=== PATIENT | female | born 1985 | race African-American/Black ===

== ENCOUNTER 2021-04-29 12:34 | Outpatient (CLI) | payer OTHER, SELFPAY ==
--- NOTE | ~2021-04-29 | MMUS_ITS ---
EXAMINATION: MM diagnostic kenneth LT w lupe, US breast LT limited HISTORY: Palpable left breast lump TECHNIQUE: Additional 3-D tomosynthesis images of the left breast were performed and synthetic 2-D im ages were generated. CAD analysis was submitted and interpreted. High resolution Limited left breast ultrasound was performed. COMPARISON: No prior studies for comparison. BREAST PARENCHYMAL COMPOSITION: Breast composed of scattered areas of fibroglandular density FINDINGS: MAMMOGRAPHIC FINDINGS: There are no suspicious masses, calcifications or architectural distortion in the left breast to sugg est malignancy. ULTRASOUND: Limited left breast ultrasound: Normal heterogeneous echotexture without focal mass. IMPRESSION: 1. No evidence for malignancy in the left breast. 2. Routine yearly screening mammogram and regular clinical breast examination are recommended. BI-RADS Category 1: Negative Reviewed, dictated and finalized at location A. [facility] WELDER IMPRESSION: 1. No evidence for malignancy in the left breast. 2. Routine yearly screening mammogram and regular clinical breast examination a re recommended. BI-RADS Category 1: Negative
== END 2021-04-29 12:35 | disposition home or self-care (01) ==
LOC: ANHIMG 12:37
PROVIDERS: PCP Physician Assistant; Visit Provider Physician Assistant
DX: N63.20 Unspecified lump in the left breast, unspecified quadrant (principal)
CPT/HCPCS: 76642; 77061; 77065; G0279

== ENCOUNTER 2024-02-28 09:58 | Outpatient (CLI) | payer BC, SELFPAY ==
--- NOTE | ~2024-02-28 | MMUS_ITS ---
EXAMINATION: MM diagnostic kenneth BI w lupe, US breast RT limited HISTORY: Right axillary tail mass TECHNIQUE: 3-D tomosynthesis images of the breasts were performed and synthetic 2-D images were gener ated. CAD analysis was submitted and interpreted. High resolution limited right breast ultrasound was performed. COMPARISON: 04/29/2021 BREAST PARENCHYMAL COMPOSITION:Not Dense. There are scattered areas of fibroglandular density. FINDINGS: MAMMOGRAPHIC FINDINGS: No suspicious mass lesion or distortion seen either breast. No suspicious microcalcifications. No sig nificant mammographic abnormality identified in either breast. ULTRASOUND: At the area of palpable concern, there is a 9 x 7 x 5 mm ovoid circumscribed mass, very superficially located beneath the skin surface. No posterior shadowing. Lesion is wider than tall. IMPRESSION: 9 x 7 x 5 mm probable benign mass at the area of clinical concern, as detailed above. Six-month foll ow-up ultrasound recommended to reassess. BI-RADS category 3, probably benign findings. Reviewed, dictated and finalized at location . IMPRESSION: 9 x 7 x 5 mm probable benign mass at the area of clinical concern, as detailed above. Six-month follow-up ultrasound recommended to reassess. BI-RADS category 3, probably benign findings.
== END 2024-02-28 09:59 | disposition home or self-care (01) ==
PROVIDERS: PCP Physician Assistant; Visit Provider Physician Assistant
DX: R59.0 Localized enlarged lymph nodes (principal); Z12.31 Encounter for screening mammogram for malignant neoplasm of breast
CPT/HCPCS: 76642; 77062; 77066; G0279